=== PATIENT | female | born 1960 | race Caucasian/White ===

== ENCOUNTER → 2016-04-25 | Outpatient (CLI) | payer MEDICARE, BC ==
[~2016-04-25] MED LIST: ACETAMINOPHEN TAB 325 MG TAB PO ONE; SODIUM CHLORIDE 0.9% 250 ML in EMPTY BAG 1 BAG IV PRN; SODIUM CHLORIDE 0.9% 500 ML in EMPTY BAG 1 BAG IV PRN; diphenhydrAMINE 25 MG CAP PO ONE
[2016-04-25 10:29] VITALS: TEMP 98.2
[2016-04-25 12:48] VITALS: BP 128/76; PULSE 96; RESP 16
== END | disposition home or self-care (01) ==
LOC: PROCWHC3 10:13
PROVIDERS: ATTEND Internal Medicine Rheumatology
DX: L40.59 Other psoriatic arthropathy (principal)
CPT/HCPCS: 96361; 96413; 96415; J1745

== ENCOUNTER → 2016-06-19 | Outpatient (CLI) | payer MEDICARE, BC ==
[2016-06-19 10:52] VITALS: RESP 16; TEMP 98.3
[2016-06-19 12:44] VITALS: BP 130/78; PULSE 72
== END | disposition home or self-care (01) ==
LOC: PROCWHC3 09:59
PROVIDERS: ATTEND Internal Medicine Rheumatology
DX: L40.59 Other psoriatic arthropathy (principal)
CPT/HCPCS: 96413; 96415; J1745

== ENCOUNTER → 2016-08-16 | Outpatient (CLI) | payer MEDICARE, BC ==
[2016-08-16 09:27] VITALS: TEMP 98.6
[2016-08-16 09:58] VITALS: RESP 18
[2016-08-16 10:50] VITALS: BP 130/78; PULSE 71
== END | disposition home or self-care (01) ==
LOC: PROCWHC3 09:07
PROVIDERS: ATTEND Internal Medicine Rheumatology
DX: L40.59 Other psoriatic arthropathy (principal)
CPT/HCPCS: 96413; 96415; J1745

== ENCOUNTER → 2016-10-17 | Outpatient (CLI) | payer MEDICARE, BC ==
[~2016-10-17] MED LIST changes: -SODIUM CHLORIDE 0.9% 250 ML in EMPTY BAG 1 BAG IV PRN
[2016-10-17 08:25] VITALS: RESP 16; TEMP 99.2
[2016-10-17 10:15] VITALS: BP 129/75; PULSE 75
== END | disposition home or self-care (01) ==
LOC: PROCWHC3 08:04
PROVIDERS: ATTEND Internal Medicine Rheumatology
DX: L40.59 Other psoriatic arthropathy (principal)
CPT/HCPCS: 96413; 96415; J1745

== ENCOUNTER → 2016-12-21 | Outpatient (CLI) | payer MEDICARE, BC ==
--- NOTE | 2016-12-25 07:41 | MM ---
Reason for exam: screening (asymptomatic). Last mammogram was performed 1 year ago. History: Patient is postmenopausal. Physical Findings: A clinical breast exam by your physician is recommended on an annual basis and results should be correlated with mammographic findings. MG 3D Screening Mammo W/Cad Bilateral CC and MLO view(s) were taken. Prior study comparison: December 19, 2015, bilateral MG 3d screening mammo w/cad. December 15, 2014, bilateral MG screening mammo w CAD. March 26, 2013, bilateral digital screening mammo w/CAD. There are scattered fibroglandular densities. Finding: There are typically benign round, diffuse calcifications in both breasts. There is a chronic nodularity bilaterally. There is no new dominant lesion. ASSESSMENT: Benign, BI-RAD 2 RECOMMENDATION: Routine screening mammogram of both breasts in 1 year.
== END | disposition home or self-care (01) ==
LOC: RADMAMWWP 09:27
PROVIDERS: ATTEND Family Medicine
DX: Z12.31 Encounter for screening mammogram for malignant neoplasm of breast (principal)
CPT/HCPCS: 77063; G0202

== ENCOUNTER → 2017-04-09 | Outpatient (CLI) | payer MEDICARE, BC ==
[~2017-04-09] MED LIST changes: +INFLIXIMAB-DYYB 700 MG in SODIUM CHLORIDE 0.9% 250 ML IV ONE
[2017-04-09 09:37] VITALS: TEMP 97.5
[2017-04-09 10:28] VITALS: RESP 20
[2017-04-09 10:44] VITALS: BP 143/87; PULSE 70
== END | disposition home or self-care (01) ==
LOC: PROCWHC3 09:17
PROVIDERS: ATTEND Internal Medicine Rheumatology
DX: L40.59 Other psoriatic arthropathy (principal)
CPT/HCPCS: 96413; 96415; Q5102

== ENCOUNTER → 2017-05-30 | Outpatient (CLI) | payer MEDICARE, BC | END | disposition home or self-care (01) | LOC: LABWHC1 05-28 14:02 | PROVIDERS: ATTEND Internal Medicine Rheumatology | DX: L40.59 Other psoriatic arthropathy (principal) | CPT/HCPCS: 36415; 86480 ==

== ENCOUNTER → 2017-06-11 | Outpatient (CLI) | payer MEDICARE, BC ==
[~2017-06-11] MED LIST changes: +ACETAMINOPHEN TAB 325 MG TAB PO NR; -ACETAMINOPHEN TAB 325 MG TAB PO ONE; +INFLIXIMAB-DYYB 700 MG in SODIUM CHLORIDE 0.9% 250 ML IV NR; -INFLIXIMAB-DYYB 700 MG in SODIUM CHLORIDE 0.9% 250 ML IV ONE; +diphenhydrAMINE 25 MG CAP PO NR; -diphenhydrAMINE 25 MG CAP PO ONE
[2017-06-11 09:44] VITALS: TEMP 98.8
[2017-06-11 11:19] VITALS: RESP 14
[2017-06-11 11:53] VITALS: BP 138/86; PULSE 78
== END | disposition home or self-care (01) ==
LOC: PROCWHC3 09:25
PROVIDERS: ATTEND Internal Medicine Rheumatology
DX: L40.59 Other psoriatic arthropathy (principal)
CPT/HCPCS: 96413; 96415; Q5103

== ENCOUNTER → 2017-08-27 | Outpatient (CLI) | payer MEDICARE, BC ==
[2017-08-27 11:45] VITALS: TEMP 98.4
[2017-08-27 13:08] VITALS: RESP 16
[2017-08-27 13:43] VITALS: BP 146/91; PULSE 80
== END | disposition home or self-care (01) ==
LOC: PROCWHC3 11:28
PROVIDERS: ATTEND Internal Medicine Rheumatology
DX: L40.59 Other psoriatic arthropathy (principal)
CPT/HCPCS: 96413; 96415; Q5103

== ENCOUNTER → 2017-11-13 | Outpatient (CLI) | payer MEDICARE, BC ==
[2017-11-13 10:23] VITALS: RESP 16; TEMP 98.3
[2017-11-13 11:43] VITALS: BP 154/85; PULSE 82
== END | disposition home or self-care (01) ==
LOC: PROCWHC3 09:42
PROVIDERS: ATTEND Internal Medicine Rheumatology
DX: L40.59 Other psoriatic arthropathy (principal)
CPT/HCPCS: 96413; 96415

== ENCOUNTER 2018-03-28 10:26 | Day surgery (SDC) | payer MEDICARE, BC ==
[2018-03-26 15:52] VITALS: BMI 30.4
[~2018-03-28 10:26] MED LIST changes: -ACETAMINOPHEN TAB 325 MG TAB PO NR; -INFLIXIMAB-DYYB 700 MG in SODIUM CHLORIDE 0.9% 250 ML IV NR; +LACTATED RINGERS 1,000 ML IV SCH; -SODIUM CHLORIDE 0.9% 500 ML in EMPTY BAG 1 BAG IV PRN; -diphenhydrAMINE 25 MG CAP PO NR
[2018-03-28 11:46] VITALS: RESP 18; TEMP 98.9
[2018-03-28] MEDS ORDERED: PROPOFOL 10 MG/ML 20 ML VIAL IV ONE (12:00)
--- NOTE | 2018-03-28 12:21 | P.PCN ---
Date of Procedure: 03/28/18 Procedure(s) Performed: BRIEF HISTORY: Patient is a 57-year-old pleasant, female, scheduled for an elective colonoscopy as a part of screening for colon neoplasia. PROCEDURE PERFORMED: Colonoscopy with snare polypectomy. PREOPERATIVE DIAGNOSIS: Screening for colon cancer. IV sedation per Anesthesia. PROCEDURE: After informed consent was obtained, the patient, was brought into the endoscopy unit. IV sedation was administered by Anesthesia under continuous monitoring. Digital rectal examination was normal. Initially the Olympus CF- 160 flexible video colonoscope was then inserted in the rectum, gradually advanced into the cecum without any difficulty. Careful examination was performed as the scope was gradually being withdrawn. Ileocecal valve and the appendiceal orifice were visualized and appeared normal. Prep was excellent. Mucosa of the cecum, ascending colon, appeared normal. In the hepatic flexure there was a 5-7 mm flat polyp that was removed by snare polypectomy. Rest of the transverse colon, descending colon, sigmoid colon, and rectum appeared normal. Scattered sigmoid diverticulosis seen. Retroflexion was performed in the rectum and no lesions were seen. The patient tolerated the procedure well. IMPRESSION: 5-7 mm flat hepatic flexure polyp serous was snare polypectomy Scattered sigmoid diverticulosis RECOMMENDATIONS: Findings of this examination were discussed with the patient as well as her family. She was advised to follow with the biopsy results. If the biopsy shows an adenoma, she can have a repeat colonoscopy in 5 years.
[2018-03-28 12:41] VITALS: BP 164/95; PULSE 77
== END 2018-03-28 13:10 | disposition home or self-care (01) ==
LOC: ORWHC2ENDO 10:26
PROVIDERS: ATTEND Internal Medicine Gastroenterology
DX: Z12.11 Encounter for screening for malignant neoplasm of colon (principal); D12.3 Benign neoplasm of transverse colon; K57.30 Diverticulosis of large intestine without perforation or abscess without bleeding; L40.50 Arthropathic psoriasis, unspecified; Z79.1 Long term (current) use of non-steroidal anti-inflammatories (NSAID); Z79.891 Long term (current) use of opiate analgesic; Z79.899 Other long term (current) drug therapy; Z88.5 Allergy status to narcotic agent
CPT/HCPCS: 88305; 45385; J2704

== ENCOUNTER → 2018-04-08 | Outpatient (CLI) | payer MEDICARE, BC ==
[~2018-04-08] MED LIST changes: +ACETAMINOPHEN TAB 325 MG TAB PO ONE; +INFLIXIMAB-DYYB 700 MG in SODIUM CHLORIDE 0.9% 250 ML IV NR; -LACTATED RINGERS 1,000 ML IV SCH; +SODIUM CHLORIDE 0.9% 1,000 ML IV SCH; +SODIUM CHLORIDE 0.9% 500 ML 500 ML in EMPTY BAG 1 BAG IV PRN; +diphenhydrAMINE 25 MG CAP PO ONE
[2018-04-08 10:29] VITALS: RESP 16; TEMP 97.9
[2018-04-08 12:17] VITALS: BP 144/78; PULSE 92
== END | disposition home or self-care (01) ==
LOC: PROCWHC3 10:15
PROVIDERS: ATTEND Internal Medicine Rheumatology
DX: L40.59 Other psoriatic arthropathy (principal)
CPT/HCPCS: 96413; 96415; Q5103

== ENCOUNTER → 2018-06-10 | Outpatient (CLI) | payer MEDICARE, BC ==
[~2018-06-10] MED LIST changes: -SODIUM CHLORIDE 0.9% 1,000 ML IV SCH
[2018-06-10 09:49] VITALS: RESP 16; TEMP 98.7
[2018-06-10 11:24] VITALS: BP 131/89; PULSE 93
== END ==
LOC: PROCWHC3 09:36
PROVIDERS: ATTEND Internal Medicine Rheumatology
DX: L40.59 Other psoriatic arthropathy (principal)
CPT/HCPCS: 96413; 96415; Q5103

== ENCOUNTER → 2018-12-03 | Outpatient (CLI) | payer MEDICARE, BC ==
--- NOTE | 2018-12-04 11:30 | MM ---
Reason for exam: screening (asymptomatic). Last mammogram was performed 1 year and 11 months ago. History: Patient is postmenopausal. Physical Findings: A clinical breast exam by your physician is recommended on an annual basis and results should be correlated with mammographic findings. MG 3D Screening Mammo W/Cad Bilateral CC, MLO, and XCCL view(s) were taken. Prior study comparison: December 21, 2016, bilateral MG 3d screening mammo w/cad. December 19, 2015, bilateral MG 3d screening mammo w/cad. There are scattered fibroglandular densities. No suspicious abnormality. No significant changes when compared with prior studies. ASSESSMENT: Negative, BI-RAD 1 RECOMMENDATION: Routine screening mammogram of both breasts in 1 year.
== END | disposition home or self-care (01) ==
LOC: RADMAMWWP 10:35
PROVIDERS: ATTEND Family Medicine
DX: Z12.31 Encounter for screening mammogram for malignant neoplasm of breast (principal)
CPT/HCPCS: 77063; 77067

== ENCOUNTER → 2020-02-22 | Outpatient (CLI) | payer MEDICARE ==
--- NOTE | 2020-02-22 14:18 | US ---
EXAMINATION TYPE: US carotid duplex BILAT DATE OF EXAM: 02/22/2020 COMPARISON: NONE CLINICAL HISTORY: I65.2 CAROTID STENOSIS. EXAM MEASUREMENTS: RIGHT: Peak Systolic Velocity (PSV) cm/sec ----- Right CCA: 66.6 ----- Right ICA: 79.0 ----- Right ECA: 113.2 ICA/CCA ratio: 1.2 RIGHT: End Diastole cm/sec ----- Right CCA: 27.0 ----- Right ICA: 23.2 ----- Right ECA: 18.7 LEFT: Peak Systolic Velocity (PSV) cm/sec ----- Left CCA: 74.3 ----- Left ICA: 110.0 ----- Left ECA: 102.5 ICA/CCA ratio: 1.5 LEFT: End Diastole cm/sec ----- Left CCA: 25.9 ----- Left ICA: 51.0 ----- Left ECA: 23.4 VERTEBRALS (direction of flow): Right Vertebral: Antegrade Left Vertebral: Antegrade Rhythm: Normal Mild atherosclerotic changes without significant velocity increases. IMPRESSION: No evidence for hemodynamically significant stenosis. Criteria for Assigning % of Stenosis / Diameter reduction (Estimation based on the indirect measurements of the internal carotid artery velocities (ICA PSV). 1. Normal (no stenosis)=ICA PSV < 125 cm/s: ratio < 2.0: ICA EDV<40 cm/s. 2. Less than 50% stenosis=ICA PSV < 125 cm/s: ratio < 2.0: ICA EDV<40 cm/s. 3. 50 to 69% stenosis=ICA PSV of 125 to 230 cm/s: ration 2.0 ? 4.0: ICA EDV 40-100 cm/s. 4. Greater than 70% stenosis to near occlusion= ICA PSV > 230 cm/s: ratio > 4.0: ICA EDV > 100 cm/s. 5. Near occlusion= ICA PSV velocities may be low or undetectable: variable ratio and ICA EDV. 6. Total occlusion=unable to detect flow.
== END | disposition home or self-care (01) ==
LOC: RADUSWWP 13:42
PROVIDERS: ATTEND Family Medicine
DX: I65.23 Occlusion and stenosis of bilateral carotid arteries (principal)
CPT/HCPCS: 93880

== ENCOUNTER → 2020-04-06 | Outpatient (CLI) | payer MEDICARE, BC ==
--- NOTE | 2020-04-11 09:27 | MM ---
Reason for exam: screening (asymptomatic). Last mammogram was performed 1 year and 4 months ago. History: Patient is postmenopausal. Physical Findings: A clinical breast exam by your physician is recommended on an annual basis and results should be correlated with mammographic findings. MG 3D Screening Mammo W/Cad Bilateral CC and MLO view(s) were taken. Prior study comparison: December 03, 2018, bilateral MG 3d screening mammo w/cad. December 21, 2016, bilateral MG 3d screening mammo w/cad. There are scattered fibroglandular densities. There are benign appearing round calcifications in the right breast. There is chronic nodularity bilaterally. There is no discrete abnormality. ASSESSMENT: Benign, BI-RAD 2 RECOMMENDATION: Routine screening mammogram of both breasts in 1 year.
== END | disposition home or self-care (01) ==
LOC: RADMAMWWP 10:50
PROVIDERS: ATTEND Family Medicine
DX: Z12.31 Encounter for screening mammogram for malignant neoplasm of breast (principal)
CPT/HCPCS: 77063; 77067

== ENCOUNTER → 2021-09-13 | Outpatient (CLI) | payer MEDICARE ==
--- NOTE | 2021-09-14 07:45 | MM ---
Reason for Exam: Screening (asymptomatic). Last mammogram was performed 1 year(s) and 5 month(s) ago. Patient History: Menarche at age 16. First Full-Term at age 27. Hysterectomy at age 34. Postmenopausal. Risk Values: Teresita 5 year model risk: 1.4%. NCI Lifetime model risk: 7.6%. Prior Study Comparison: 12/21/2016 Bilateral Screening Mammogram, [facility]. 12/03/2018 Bilateral Screening Mammogram, [facility]. 04/06/2020 Bilateral Screening Mammogram, [facility]. Tissue Density: There are scattered fibroglandular densities. Findings: Analyzed By CAD. There is no suspicious group of microcalcifications or new suspicious mass in either breast. Overall Assessment: Negative, BI-RAD 1 Management: Screening Mammogram of both breasts in 1 year. A clinical breast exam by your physician is recommended on an annual basis and results should be correlated with mammographic findings. Electronically signed and approved by: Rey Tiwari M.D. Radiologis
== END | disposition home or self-care (01) ==
LOC: RADMAMWWP 06:53
PROVIDERS: ATTEND Family Medicine
DX: Z12.31 Encounter for screening mammogram for malignant neoplasm of breast (principal); Z78.0 Asymptomatic menopausal state
CPT/HCPCS: 77063; 77067

== ENCOUNTER → 2022-10-23 | Outpatient (CLI) | payer MEDICARE ==
--- NOTE | 2022-10-24 13:40 | MM ---
Reason for Exam: Screening (asymptomatic). Last mammogram was performed 1 year(s) and 1 month(s) ago. Patient History: Menarche at age 16. First Full-Term at age 27. Hysterectomy at age 34. Postmenopausal. Risk Values: Teresita 5 year model risk: 1.5%. NCI Lifetime model risk: 7.4%. Prior Study Comparison: 12/03/2018 Bilateral Screening Mammogram, [facility]. 04/06/2020 Bilateral Screening Mammogram, [facility]. 09/13/2021 Bilateral MG 3D screening mammo w/cad, [facility]. Tissue Density: There are scattered fibroglandular densities. Findings: Analyzed By CAD. There is no suspicious group of microcalcifications or new suspicious mass in either breast. Overall Assessment: Negative, BI-RAD 1 Management: Screening Mammogram of both breasts in 1 year. . Patient should continue monthly self-breast exams. A clinical breast exam by your physician is recommended on an annual basis. This exam should not preclude additional follow-up of suspicious palpable abnormalities. Note on Teresita scores and lifetime risk: 1. A Teresita score greater than 3% is considered moderate risk. If this is the case, consider specialist referral to assess eligibility for a risk reducing agent. 2. If overall lifetime risk for the development of breast cancer is 20% or higher, the patient may qualify for future screening with alternating mammogram and breast MRI. Electronically signed and approved by: Rey Tiwari M.D. Radiologis
== END | disposition home or self-care (01) ==
LOC: RADMAMWWP 13:42
PROVIDERS: ATTEND Family Medicine
DX: Z12.31 Encounter for screening mammogram for malignant neoplasm of breast (principal); Z78.0 Asymptomatic menopausal state
CPT/HCPCS: 77063; 77067

== ENCOUNTER → 2023-01-08 | Outpatient (CLI) | payer OTHER ==
--- NOTE | 2023-01-08 13:36 | XR ---
EXAMINATION TYPE: XR chest 2V DATE OF EXAM: 01/08/2023 1:28 PM CLINICAL INDICATION:Female, 62 years old with history of Z11.1 ENCOUNTER FOR SCREENING FOR [employer]PIRATOR [employer] TU[employer]; [facility] COMPARISON: Chest radiographs from 01/08/2023 TECHNIQUE: XR chest 2V Frontal and lateral views of the chest. FINDINGS: Lungs/Pleura: There is no evidence of pleural effusion, focal consolidation, or pneumothorax. Pulmonary vascularity: Unremarkable. Heart/mediastinum: Cardiomediastinal silhouette is unremarkable. Musculoskeletal: No acute osseous pathology. IMPRESSION: No acute cardiopulmonary disease/process.
== END | disposition home or self-care (01) ==
LOC: RADXRMAIN 12:35
PROVIDERS: ATTEND Dermatology MOHS-Micrographic Surgery
DX: Z11.1 Encounter for screening for respiratory tuberculosis (principal)
CPT/HCPCS: 71046

== ENCOUNTER → 2023-12-10 | Outpatient (CLI) | payer BC ==
--- NOTE | 2023-12-11 18:32 | MM ---
Reason for Exam: Screening (asymptomatic). Last mammogram was performed 1 year(s) and 2 month(s) ago. Patient History: Menarche at age 16. First Full-Term at age 27. Hysterectomy at age 34. Postmenopausal. Risk Values: Teresita 5 year model risk: 1.5%. NCI Lifetime model risk: 7.2%. Prior Study Comparison: 04/06/2020 Bilateral Screening Mammogram, [facility]. 09/13/2021 Bilateral MG 3D screening mammo w/cad, [facility]. 10/23/2022 Bilateral MG 3D screening mammo w/cad, [facility]. Tissue Density: There are scattered areas of fibroglandular density. Findings: Analyzed By CAD. There is no suspicious group of microcalcifications or new suspicious mass in either breast. Overall Assessment: Negative, BI-RAD 1 Management: Screening Mammogram of both breasts in 1 year. . Patient should continue monthly self-breast exams. A clinical breast exam by your physician is recommended on an annual basis. This exam should not preclude additional follow-up of suspicious palpable abnormalities. Note on Teresita scores and lifetime risk: 1. A Teresita score greater than 3% is considered moderate risk. If this is the case, consider specialist referral to assess eligibility for a risk reducing agent. 2. If overall lifetime risk for the development of breast cancer is 20% or higher, the patient may qualify for future screening with alternating mammogram and breast MRI. [facility], , 12/11/2023 6:29 PM. Electronically signed and approved by: Yadira Putnam M.D. Radiologist
== END | disposition home or self-care (01) ==
LOC: RADMAMWWP 09:45
PROVIDERS: ATTEND Family Medicine
CPT/HCPCS: 77063; 77067